=== PATIENT | female | born 1935 | race Caucasian/White ===

== ENCOUNTER 2024-11-29 21:32 | Emergency (ER) | payer OTHER, MEDICARE ==
[2024-11-29 21:44] VITALS: BMI 24.4
[2024-11-29] MEDS ORDERED: ONDANSETRON 4 MG/2 ML VIAL ONE (22:36)
[2024-11-29] MEDS ORDERED: MORPHINE SULFATE 2 MG/ML SYRINGE ONE (22:36)
[2024-11-29] MEDS: morphine CARPU-JECT 4 MG/1 ML DISP.SYRIN IVPUSH ONE (22:53)
[2024-11-29] MEDS: SODIUM CHLORIDE 1,000 ML IV STA (22:53)
[2024-11-29] MEDS: ONDANSETRON 4 MG/2 ML VIAL IVPUSH ONE (22:54)
[2024-11-29 23:00] LABS: HEMATOCRIT 35.8 % (32.4-45.2); HEMOGLOBIN 11.8 GM/dL (10.7-15.3); MCH 33.3 pg (25.7-33.7); MEAN PLT VOLUME 8.4 fl (7.5-11.1); PLATELET COUNT 228 10^3/uL (134-434); RBC 3.55 M/mm3 (3.60-5.2); RDW 12.6 % (11.6-15.6); WHITE BLOOD COUNT 12.2 K/mm3 (4.0-10.0)
[2024-11-29] MEDS ORDERED: diazePAM CARPU-JECT 10 MG/2 ML DISP.SYRIN ONE (23:13)
[2024-11-29 23:25] LABS: POTASSIUM 4.8 mmol/L (3.5-5.1)
[2024-11-29 23:27] LABS: ALBUMIN 3.2 g/dl (3.4-5.0); BLOOD UREA NITROGEN 30.7 mg/dL (7-18); CALCIUM 9.8 mg/dL (8.5-10.1); MAGNESIUM 1.7 mg/dL (1.8-2.4)
[2024-11-29] MEDS: diazePAM CARPU-JECT 10 MG/2 ML DISP.SYRIN IVPUSH ONE (23:30)
[2024-11-29] MEDS: diazePAM 2 MG TABLET PO ONE (23:30)
[2024-11-29 23:31] LABS: CREATININE 1.2 mg/dL (0.55-1.3); PHOSPHOROUS 3.1 mg/dL (2.5-4.9)
[2024-11-29 23:32] LABS: BILIRUBIN,TOTAL 0.9 mg/dL (0.2-1); TOT PROT 6.2 g/dl (6.4-8.2)
[2024-11-30] MEDS ORDERED: HYDROmorphone HCL CARPU-JECT 2 MG/1 ML DISP.SYRIN ONE (00:27)
[2024-11-30] MEDS ORDERED: ACETAMINOPHEN INJECTION 100 ML ONE (00:27)
[2024-11-30] MEDS ORDERED: DIPHTH,PERTUSS(ACELL),TET 0.5 ML DISP.SYRIN IM ONE (00:27)
[2024-11-30] MEDS ORDERED: LIDOCAINE 5% TOPICAL PATCH ONE (00:27)
[2024-11-30] MEDS: HYDROmorphone HCl 2 MG/ML VIAL IVPB ONE (00:35)
[2024-11-30] MEDS: LIDOCAINE 5% TOPICAL PATCH TP ONE (00:35)
[2024-11-30] MEDS: ACETAMINOPHEN 1000 MG/100 ML BAG IVPB ONE (00:36)
[2024-11-30] MEDS: DIPHTH,PERTUSS(ACELL),TET 0.5 ML DISP.SYRIN IM ONE (00:41)
[2024-11-30] MEDS ORDERED: ONDANSETRON 4 MG/2 ML VIAL ONE (02:37)
[2024-11-30] MEDS: ONDANSETRON 4 MG/2 ML VIAL IVPUSH ONE (02:45)
[2024-11-30 03:06] VITALS: BP 110/62; PULSE 78; RESP 12; TEMP 98.6
[2024-11-30] MEDS ORDERED: LIDOCAINE PATCH REMOVAL MC SCH (22:00)
== END 2024-11-30 03:07 | disposition short-term general hospital (02) ==
LOC: JER 21:32
PROC: 3E033GC Introduction of Other Therapeutic Substance into Peripheral Vein, Percutaneous Approach (ICD-10-PCS; 2024-11-29)
PROC: 3E033NZ Introduction of Analgesics, Hypnotics, Sedatives into Peripheral Vein, Percutaneous Approach (ICD-10-PCS; 2024-11-29)
PROC: 3E033GC Introduction of Other Therapeutic Substance into Peripheral Vein, Percutaneous Approach (ICD-10-PCS; 2024-11-29)
PROC: 3E0337Z Introduction of Electrolytic and Water Balance Substance into Peripheral Vein, Percutaneous Approach (ICD-10-PCS; 2024-11-29)
PROC: 3E033NZ Introduction of Analgesics, Hypnotics, Sedatives into Peripheral Vein, Percutaneous Approach (ICD-10-PCS; principal; 2024-11-30)
PROC: 3E033NZ Introduction of Analgesics, Hypnotics, Sedatives into Peripheral Vein, Percutaneous Approach (ICD-10-PCS; 2024-11-30)
PROC: 3E033GC Introduction of Other Therapeutic Substance into Peripheral Vein, Percutaneous Approach (ICD-10-PCS; 2024-11-30)
PROC: 3E0234Z Introduction of Serum, Toxoid and Vaccine into Muscle, Percutaneous Approach (ICD-10-PCS; 2024-11-30)
DX: M97.02XA Periprosthetic fracture around internal prosthetic left hip joint, initial encounter (principal); R79.89 Other specified abnormal findings of blood chemistry; Z23 Encounter for immunization; W01.0XXA Fall on same level from slipping, tripping and stumbling without subsequent striking against object, initial encounter; W55.03XA Scratched by cat, initial encounter
CPT/HCPCS: 36415; 70450-TC; 71046-TC-FY; 72125-TC; 72131-TC; 73502-TC-LT-FY; 73552-TC-LT-FY; 73564-TC-LT-FY; 80053; 82550; 82553; 83735; 84100; 84484; 85027; 86850; 86900; 86901; 90471; 90715; 93005; 93010; 96361; 96374; 96375; 96376; 99285-25; J0131